=== PATIENT | male | born 1960 | race American Indian/Alaskan Native ===

== ENCOUNTER 2019-02-03 18:10 | Emergency (ER) | payer OTHER ==
[2019-02-03 18:15] VITALS: BMI 26.2
[2019-02-03 18:18] VITALS: RESP 18; TEMP 97.9; O2SAT 100
--- NOTE | 2019-02-03 18:48 | ED PDOC ---
Arrival/HPI - General Chief Complaint: Cough, Cold, Congestion Time Seen by Provider: 02/03/19 18:16 Historian: Patient - History of Present Illness Narrative History of Present Illness (Text): 02/03/19 18:41 58-year-old male presents today with a 4-day history of cough and nasal congestion. Patient states today he has been having continued productive dry cough now with developing pain only when coughing. No medications have been taken for pain at home. Patient states he has nasal congestion. He denies ear pain. He denies sore throat. No neck or back pain. No abdominal pain. No nausea or vomiting. No fevers or chills. No sick contacts. Patient states the cough is dry and when he starts coughing he is unable to stop. Patient denies shortness of breath. Past Medical History - Provider Review Nursing Documentation Reviewed: Yes - Travel History Have you recently traveled outside [place] w/in the past 3 mons?: No - Endocrine/Metabolic Hx Diabetes Mellitus Type 2: Yes - Psychiatric Hx Substance Use: No Family/Social History - Physician Review Nursing Documentation Reviewed: Yes Family/Social History: Unknown Family HX Smoking Status: Never Smoked Hx Alcohol Use: No Hx Substance Use: No Allergies/Home Meds Allergies/Adverse Reactions: Allergies No Known Allergies Allergy (Verified 02/03/19 18:15) Review of Systems - Review of Systems Constitutional: absent: Fatigue, Fevers ENT: Sinus Congestion. absent: Sore Throat Respiratory: Cough. absent: SOB, Sputum, Wheezing Cardiovascular: absent: Chest Pain, Palpitations Gastrointestinal: absent: Abdominal Pain, Constipation, Diarrhea, Nausea, Vomiting Genitourinary Male: absent: Dysuria, Frequency, Hematuria Musculoskeletal: absent: Arthralgias, Back Pain, Neck Pain Skin: absent: Rash, Pruritis Neurological: Headache. absent: Dizziness Psychiatric: absent: Anxiety, Depression Physical Exam Vital Signs Reviewed: Yes Vital Signs Temp Pulse Resp BP Pulse Ox 02/03/19 18:16 97.9 F 87 18 178/80 H 100 Temperature: Afebrile Blood Pressure: Hypertensive Pulse: Regular Respiratory Rate: Normal Appearance: Positive for: Well-Appearing, Non-Toxic, Comfortable Pain Distress: None Mental Status: Positive for: Alert and Oriented X 3 - Systems Exam Head: Present: Atraumatic Pupils: Present: PERRL Extroacular Muscles: Present: EOMI Conjunctiva: Present: Normal Ears: Present: Normal, NORMAL TM Mouth: Present: Moist Mucous Membranes, Normal Lips, Normal Tounge. No: Drooling, Trismus Pharnyx: Present: Normal. No: ERYTHEMA, EXUDATE, TONSILS ENLARGED, Peritonsilar Swelling, Uvular Deviation, Muffled/Hoarse Voice Nose (External): Present: Atraumatic Nose (Internal): Present: Normal Inspection Neck: Present: Normal Range of Motion, Trachea Midline Respiratory/Chest: Present: Clear to Auscultation, Good Air Exchange. No: Re spiratory Distress, Accessory Muscle Use Cardiovascular: Present: Regular Rate and Rhythm, Normal S1, S2. No: Murmurs Abdomen: No: Tenderness, Distention, Peritoneal Signs, Rebound, Guarding Neurological: Present: GCS=15, Speech Normal Skin: Present: Warm, Dry, Normal Color. No: Rashes Psychiatric: Present: Alert, Oriented x 3 Medical Decision Making ED Course and Treatment: 02/03/19 18:50 58-year-old male with cough x4 days with nasal congestion. Patient is nontoxic well-appearing no distress is stable vital signs Chest x-ray: Right lower lobe infiltrate CBC within normal limits CMP BUN 24 creatinine 2 BNP 7280 Patient states he cannot stay in the hospital as he is a 12-year-old son at home. He states he will return tomorrow morning after he arranges for someone to stay with his son. Patient was made aware of my concerns for renal insufficiency, CHF and pneumonia. Patient has been advised to not leave the emergency room but has decided to go AGAINST MEDICAL ADVICE. The patient possesses capacity to make decisions and has voiced understanding to all my warnings of potential worsening of the condition for which medical care was sought. I have discussed all known and potential risks and consequences to the patient leaving AGAINST MEDICAL ADVICE. Patient is leaving against medical advise. AMA form signed. witness by HEBER PRETTY All aspects of this case were discussed the attending of record. Impression: pneumonia, CHF, renal insufficiency Return if you wish to continue your care Zithromax one tablet once daily x4 days Follow-up with the motor and controls tester KAYLEN Followup with primary care physician KAYLEN Return if symptoms worsen persist or if new symptoms develop - RAD Interpretation Radiology Orders: 02/03/19 18:39 CHEST TWO VIEWS (PA/LAT) [RAD] Stat - Medication Orders Current Medication Orders: Discontinued Medications Acetaminophen (Tylenol 325mg Tab) 975 mg PO STAT STA Stop: 02/03/19 18:40 Disposition/Present on Arrival - Present on Arrival Any Indicators Present on Arrival: No History of DVT/PE: No History of Uncontrolled Diabetes: No Urinary Catheter: No History of Decub. Ulcer: No History Surgical Site Infection Following: None - Disposition Have Diagnosis and Disposition been Completed?: Yes Diagnosis: Pneumonia, CHF (congestive heart failure), Renal insufficiency Disposition: AGAINST MEDICAL ADVICE Disposition Time: 22:00 Patient Plan: Other (AMA) Patient Problems: Current Active Problems Problem Status Onset CHF (congestive heart failure) Acute Pneumonia Acute Renal insufficiency Acute Condition: GUARDED Discharge Instructions (ExitCare): Heart Failure (ED), Pneumonia, Adult (DC), Pneumonia in Adults, Acute Kidney Failure (DC) Additional Instructions: Return if you wish to continue your care Zithromax one tablet once daily x4 days Follow-up with the motor and controls tester KAYLEN Followup with primary care physician KAYLEN Return if symptoms worsen persist or if new symptoms develop Prescriptions: Azithromycin [Zithromax] 250 mg PO DAILY #4 tab Referrals: Washington Agrawal DO [Family Provider] - Follow up with primary Jose Clay MD [Staff Provider] - Follow up with primary Duane James MD [Staff Provider] - Follow up with primary Forms: Wish (Malay), WORK NOTE
[2019-02-03 21:34] LABS: BASO # 0.03 K/mm3 (0.0-2.0); BASO % 0.5 % (0.0-3.0); EOS # 0.1 (0.0-0.7); EOS % 2.1 % (1.5-5.0); HEMOGLOBIN 10.6 g/dL (14.0-18.0); LYMPH # 1.2 (1.2-3.4); MEAN CELL VOLUME 77.4 fl (80.0-105.0); MEAN CORPUSCULAR HEMOGLOBIN 24.4 pg (25.0-35.0); MEAN CORPUSCULAR HGB CONC 31.5 g/dl (31.0-37.0); MEAN PLATELET VOLUME 10.2 fl (7.0-11.0); MONO # 0.3 (0.1-0.6); MONO % 4.8 % (1.0-6.0); RBC 4.34 10^6/uL (3.5-6.1); RED CELL DISTRIBUTION WIDTH 14.6 % (11.5-14.5); WHITE BLOOD COUNT 6.2 10^3/uL (4.5-11.0)
[2019-02-03 21:46] LABS: ALB/GLOB RATIO 0.9 (1.1-1.8); ALBUMIN 3.3 g/dL (3.0-4.8); CALCIUM 8.9 mg/dL (8.4-10.5)
[2019-02-03 22:37] VITALS: BP 154/68; PULSE 75
--- NOTE | 2019-02-04 08:38 | RAD ---
HISTORY: cough x 4 days COMPARISON: None available. TECHNIQUE: Chest PA and lateral, 2 views FINDINGS: Examination limited by habitus and patient obliquity. LUNGS: Bilateral hilar prominence. No focal consolidation. Please note that chest x-ray has limited sensitivity for the detection of pulmonary masses. PLEURA: No significant pleural effusion identified. No definite pneumothorax . CARDIOVASCULAR: Cardiomegaly. OSSEOUS STRUCTURES: No acute osseous abnormality identified. VISUALIZED UPPER ABDOMEN: Unremarkable. OTHER FINDINGS: None. IMPRESSION: Cardiomegaly. Bilateral hilar prominence.
== END 2019-02-03 22:30 | disposition left against medical advice (07) ==
LOC: MERGE 18:10 → ED 18:10
DX: J18.9 Pneumonia, unspecified organism (principal); I50.9 Heart failure, unspecified; N28.9 Disorder of kidney and ureter, unspecified; E11.9 Type 2 diabetes mellitus without complications

== ENCOUNTER 2019-02-04 10:02 | Inpatient (IN) | payer OTHER ==
[2019-02-04 10:21] VITALS: BMI 25.7
[2019-02-04] MEDS ORDERED: guaiFENesin 200 mg/10 ml Syrup UD PO ONE (10:27)
[2019-02-04] MEDS ORDERED: Albuterol-Ipratrop 3 mg / 0.5 (3 ml) UD IH STA (10:27)
--- NOTE | 2019-02-04 10:37 | ED PDOC ---
Arrival/HPI - General Chief Complaint: Cough, Cold, Congestion Time Seen by Provider: 02/04/19 10:10 Historian: Patient - History of Present Illness Narrative History of Present Illness (Text): 02/04/19 11:06 58-year-old male returns to the ER for cough and to be admitted. Patient states that he was seen in the ER yesterday for a 4-day history of productive cough and nasal congestion. Patient states he was told that he had pneumonia and CHF, was advised to stay overnight in the hospital however he left AGAINST MEDICAL ADVICE. Patient states that he is willing to be admitted now. Patient denies any ear pain, sore throat, neck or back pain, abdominal pain, nausea or vomiting, fevers or chills, sick contacts, shortness of breath, chest pain or back pain. PMD [place] Past Medical History - Provider Review Primary Care Provider: Washington Agrawal - Infectious Disease Hx of Infectious Diseases: None - Pulmonary Hx Pneumonia: Yes - Endocrine/Metabolic Hx Diabetes Mellitus Type 2: Yes - Musculoskeletal/Rheumatological Hx Falls: No - Psychiatric Hx Substance Use: No Family/Social History Family/Social History: No Known Family HX Smoking Status: Never Smoked Hx Alcohol Use: No Hx Substance Use: No Allergies/Home Meds Allergies/Adverse Reactions: Allergies No Known Allergies Allergy (Verified 02/04/19 08:38) Review of Systems - Review of Systems Constitutional: absent: Fatigue, Fevers ENT: absent: Sore Throat, Rhinorrhea, Sinus Congestion Respiratory: Cough. absent: SOB, Sputum Cardiovascular: absent: Chest Pain, Palpitations Gastrointestinal: absent: Abdominal Pain, Nausea, Vomiting Musculoskeletal: absent: Arthralgias, Back Pain, Neck Pain Skin: absent: Rash, Skin Lesions Neurological: absent: Headache, Dizziness Physical Exam Temperature: Afebrile Blood Pressure: Hypertensive Pulse: Regular Respiratory Rate: Normal Appearance: Positive for: Well-Appearing, Non-Toxic, Comfortable Pain Distress: None Mental Status: Positive for: Alert and Oriented X 3 - Systems Exam Head: Present: Atraumatic, Normocephalic Pupils: Present: PERRL Extroacular Muscles: Present: EOMI Conjunctiva: Present: Normal Mouth: Present: Moist Mucous Membranes Neck: Present: Normal Range of Motion. No: Meningeal Signs, Lymphadenopathy Respiratory/Chest: Present: Good Air Exchange, Rales (+fine rales at the bases). No: Respiratory Distress, Accessory Muscle Use, Wheezes, Rhonchi Cardiovascular: Present: Regular Rate and Rhythm, Normal S1, S2. No: Murmurs Abdomen: No: Tenderness, Distention, Peritoneal Signs Back: Present: Normal Inspection Upper Extremity: Present: Normal Inspection. No: Cyanosis, Edema Lower Extremity: Present: Normal Inspection, Edema (2+ pittting edema) Neurological: Present: GCS=15, CN II-XII Intact, Speech Normal, Motor Func Grossly Intact, Normal Sensory Function, Other Skin: Present: Warm, Dry, Normal Color. No: Rashes Psychiatric: Present: Alert, Oriented x 3, Normal Insight, Normal Concentration Medical Decision Making ED Course and Treatment: 02/04/19 11:02 Previous medical records reviewed, patient was seen yesterday 02/03/14 for cough, he was diagnosed with pneumonia, CHF and renal insufficiency. Labs performed yesterday showed : cbc hgb 10.3 cmp bun 24, creat 2.0, bnp 7280 CXR 02/03/19 : Cardiomegaly. Bilateral hilar prominence. Plan : - IV - Labs - EKG - CXR - Guifenesin PO - Duoneb x1 - Zithromax PO - Lasix IV EKG: NSR at 93 bpm, (+) T wave inversions noted to V5-V6, no prior EKGs available for comparison, as read by PA. Case d/w Dr. Massey, will admit the patient to remote tele with consults to Dr. Bustos for Renal and Dr. Larsen for cardio. Admit order, bridge orders and consults placed. 02/04/19 11:20 Labs from today : cbc hgb 10.3 cmp bun 24, creat 2.1, trop 0.02, bnp 6620 - Medication Orders Current Medication Orders: Discontinued Medications Albuterol/Ipratropium (Duoneb 3 Mg/0.5 Mg (3 Ml) Ud) 3 ml IH STAT STA Stop: 02/04/19 10:28 Furosemide (Lasix) 20 mg IVP STAT STA Stop: 02/04/19 10:34 Guaifenesin (Robitussin) 200 mg PO ONCE ONE Stop: 02/04/19 10:28 - PA / ELECTRONIC MAINTENANCE SUPERVISOR / Resident Statement MD/DO has reviewed & agrees with the documentation as recorded. Disposition/Present on Arrival - Present on Arrival Any Indicators Present on Arrival: Yes History of DVT/PE: No History of Uncontrolled Diabetes: Yes Urinary Catheter: No History of Decub. Ulcer: No History Surgical Site Infection Following: None - Disposition Have Diagnosis and Disposition been Completed?: Yes Diagnosis: CHF (congestive heart failure), Renal insufficiency, Bronchitis Disposition: HOSPITALIZED Disposition Time: 10:30 Patient Plan: Admission (to remote main campus medical center, as per Dr. Massey) Patient Problems: Current Active Problems Problem Status Onset Bronchitis Acute CHF (congestive heart failure) Acute Renal insufficiency Acute Condition: STABLE
[2019-02-04 10:49] LABS: BASO # 0.03 K/mm3 (0.0-2.0); BASO % 0.6 % (0.0-3.0); EOS # 0.1 (0.0-0.7); EOS % 2.8 % (1.5-5.0); HEMOGLOBIN 10.3 g/dL (14.0-18.0); LYMPH # 0.9 (1.2-3.4); LYMPH % 18.3 % (22.0-35.0); MEAN CORPUSCULAR HEMOGLOBIN 24.5 pg (25.0-35.0); MEAN CORPUSCULAR HGB CONC 31.8 g/dl (31.0-37.0); MEAN PLATELET VOLUME 9.8 fl (7.0-11.0); MONO # 0.2 (0.1-0.6); MONO % 4.5 % (1.0-6.0); RBC 4.21 10^6/uL (3.5-6.1); RED CELL DISTRIBUTION WIDTH 14.6 % (11.5-14.5); WHITE BLOOD COUNT 4.9 10^3/uL (4.5-11.0)
[2019-02-04 11:00] LABS: INR 1.19; PROTHROMBIN TIME 13.4 SECONDS (9.4-12.5)
[2019-02-04 11:07] LABS: ALB/GLOB RATIO 0.8 (1.1-1.8); ALBUMIN 3.1 g/dL (3.0-4.8); CALCIUM 8.6 mg/dL (8.4-10.5)
[2019-02-04 11:11] LABS: TROPONIN I 0.02 ng/mL
[2019-02-04 12:08] LABS: CK-MB 3.2 ng/mL (0.0-3.6)
[2019-02-04] MEDS ORDERED: Pneumococcal 23-Valent Vaccine IM ONE (13:23)
--- NOTE | 2019-02-04 15:01 | CARD ---
APPROVED REPORT Date of service: 02/04/2019 EKG Measurement Heart [id number] <Conclusion> Normal sinus rhythm Biatrial enlargement Voltage criteria for LVH T wave abnormality, consider lateral ischemia Prolonged QT Abnormal ECG
[2019-02-04 16:17] LABS: TOTAL IRON BINDING CAPACITY 234 ug/dL (261-462)
[2019-02-04 16:24] LABS: % IRON SATURATION 21 % (20-55); IRON 49 ug/dL (45-180)
--- NOTE | 2019-02-04 16:24 | US ---
Date of service: 02/04/2019 PROCEDURE: Ultrasound of the Kidneys HISTORY: [facility] COMPARISON: None available. TECHNIQUE: Sonogram of the kidneys. FINDINGS: RIGHT KIDNEY: Measures: 12.1 x 5.7 x 6.4 cm. No obstructing calculus or hydronephrosis identified. 1.5 x 1.3 x 1.3 cm midpole cyst. LEFT KIDNEY: Measures: 13.3 x 6.3 x 6.8 cm. No obstructing calculus, hydronephrosis, or renal cyst identified. OTHER FINDINGS: None. IMPRESSION: 1.5 x 1.3 x 1.3 cm right midpole renal cyst.
[2019-02-04] MEDS: cefTRIAXone 1 gm 1 GM/100 ML BAG IVPB SCH (17:12)
--- NOTE | 2019-02-04 17:38 | CON ---
DATE OF CONSULTATION: 02/04/2019 REASON FOR CONSULTATION: Acute kidney injury, shortness of breath, NIDDM, hypertension. HISTORY OF PRESENT ILLNESS: A 58-year-old male, very poor historian, he reports that he has a history of diabetes for at least 10 years, also he has a history of hypertension, but he does not take any medications. He reports he was sent to the cardiovascular specialist by his primary care doctor, but he never followed up. He came to the emergency room because he was coughing, and he developed a severe headache and severe retrosternal pain associated with the cough. He denies any fever. He denies any chills. He denies any phlegm. In the emergency room, he was found to have severe hypertension. His pressure was 170/107 and heart rate was found to be 95. He was afebrile. He was tachypneic with a respiratory rate of 22. His initial blood work showed a hemoglobin of 10.3, and his BUN was 24 and his creatinine was 2.1. Consultation was requested for hypertensive emergency, acute kidney injury. PAST MEDICAL AND SURGICAL HISTORY: NIDDM, hypertension, ?CHF, ?chronic kidney disease. The patient actually was in the emergency room yesterday complaining of productive cough. The patient was told he had pneumonia and CHF, but the patient left AMA yesterday. FAMILY HISTORY: Noncontributory. SOCIAL HISTORY: No smoking, no alcohol use, no IV drug abuse. ALLERGIES: NO KNOWN DRUG ALLERGIES. MEDICATIONS: He reports that he takes insulin and he takes a combination medication for his sugar, which has metformin, but he does not know the name. Also, he reports that he does not take any of his antihypertensives that were prescribed. REVIEW OF SYSTEMS: Cough, shortness of breath, headache, retrosternal pain. PHYSICAL EXAMINATION: GENERAL: Middle-aged male, lying in bed. VITAL SIGNS: Blood pressure 157/96, heart rate 96, respiratory rate 18, temperature 98.6. HEENT: Normocephalic, atraumatic, positive pallor. NECK: Supple, no JVD. LUNGS: Bilateral equal entry, bilateral rhonchi, no rales appreciated. CARDIAC: S1, S2, no murmur, no rub. ABDOMEN: Soft, nondistended, nontender, bowel sounds present. EXTREMITIES: No lower extremity edema. LABORATORY DATA: WBC 4.9, hemoglobin 10.3, hematocrit 32, platelets 202, MCV 77. Sodium 140, potassium 4.4, chloride 109, CO2 of 28, BUN 24, creatinine 2.1, glucose 111, calcium 8.6, magnesium 2.3, AST 71, ALT 37, LDH 1047, BNP 6620, albumin 3.1. Chest x-ray within normal limits, some hilar prominence. CURRENT MEDICATIONS: Insulin, Lasix 20 mg IV push given in the emergency room, IV daily ordered, amlodipine 5, ceftriaxone 1 g, Zithromax. ASSESSMENT: A 58-year-old male, poor historian, noncompliant with medical treatment, with a history of [id number] diabetes mellitus for 10+ years, hypertension for a long time, but not on medication, ? CHF, ?underlying chronic kidney disease, is presenting with cough, shortness of breath, retrosternal pain likely secondary to cough. Does not appear to have any pneumonia at this time. Likely pain is related to hacking cough which might be secondary to bronchitis. Does not appear to be in failure. His lungs are clear. He has no edema. His chest x-ray looks good. At this time, unclear what his baseline creatinine is. I have tried to call Dr. Agrawal's office, but was unable to get any information. Suspect he does have underlying chronic kidney disease. 1. Acute kidney injury superimposed on chronic kidney disease stage II/III?. 2. Longstanding diabetes, ?controlled. 3. Severe hypertension, hypertensive emergency. 4. Diastolic dysfunction. 5. Underlying diabetic nephropathy?, anemia, chronic kidney disease, ?microcytic anemia, need to consider iron-deficiency anemia also in the differential diagnosis. PLAN: 1. Urinalysis. 2. Check phosphorus. 3. Check iron stores. 4. Renal ultrasound. 5. Add hydralazine 10 t.i.d. 6. We will hold off on ARB for the time being until we can figure out outpatient lab work. The patient is counseled regarding importance of blood pressure control and slowing down the progression of kidney disease. Thank you for the courtesy of this consultation. We will follow this patient closely with you. Yolanda Bustos MD
[2019-02-04] MEDS: Insulin Reg-MEDIUM-Coverage SC SCH ×2 (17:50→22:26)
[2019-02-04 20:42] LABS: FERRITIN 59.5 ng/mL
[2019-02-04] MEDS ORDERED: guaiFENesin 200 mg/10 ml Syrup UD PO STA (22:14)
--- NOTE | 2019-02-04 22:30 | HP ---
DATE OF EXAM: 02/04/2019 HISTORY OF PRESENT ILLNESS: I was called to the emergency room to see Juan and admit him to the hospital. This a second trip to the emergency room in a week. He comes in with complaints of productive cough, nasal congestion, and he had pneumonia and CHF. He was advised to stay overnight and he refused and left against medical advice, now he is back, a little bit worse with the same situation, he agrees to stay. He is a 58-year-old male with a CHF and COPD issue. He is in the gursavage, little uncomfortable. He has got history of pneumonia, CHF, and diabetes. MEDICATIONS: He has no medicine with him right now. ALLERGIES: HE HAS NO KNOWN DRUG ALLERGIES. FAMILY HISTORY: There is no family history of anything. SOCIAL HISTORY: Nonsmoker. No drinking. No drugs. REVIEW OF SYSTEMS: He is not fatigue. No fevers. He has no sore throat or rhinorrhea. No sinus congestion. He has had a cough productive and occasional shortness of breath if he does anything, feels swollen. No chest pain or palpitations. No abdominal pain, nausea, vomiting, constipation, or diarrhea. No arthralgias. No back pain or neck pain. No skin lesions or rashes that he knows of. No headache or dizziness. PHYSICAL EXAMINATION: VITAL SIGNS: He has a 98.6 temperature, 96 pulse, 157/96 blood pressure, I put him on amlodipine and when he came in, his blood pressure was 169/108 and 160/102, 18 respiratory rate, and 95% O2 sat on room air. HEAD, EYES, EARS, NOSE AND THROAT: Normocephalic and atraumatic. Extraocular muscles are intact. Pupils equal and reactive to light and accommodation. Throat is moist. NECK: Supple. No JVD. Thyroid midline. No palpable cervical lymphadenopathy. Good range of motion of the neck. No meningeal signs. HEART: Regular rate. Normal S1 and S2. LUNGS: Decreased breath sounds, fine rales at the bases. No wheezes. Cough congestion. ABDOMEN: Soft and nontender. Positive bowel sounds. No guarding. No rebound. No CVA tenderness. EXTREMITIES: Have +2 pitting edema bilateral lower extremities. NEUROLOGIC: GCS is 50. Cranial nerves II through XII grossly intact. Speech is normal. Alert and oriented x3. He is comfortable at rest, but he is short of breath and coughing. SKIN: Warm and dry. No apparent rashes or ulcers. LABORATORY DATA: He had multiple tests done. He has a 140 sodium, potassium 4.4, BUN 24, creatinine 2.1, little high, GFR 32, sugar is 111, calcium 8.6, magnesium 2.3, and total bili is 0.8. AST is 71, ALT is 37, and alk phos 120. Lactate dehydrogenase is 1047. Total creatine kinase is 3920. Troponin I is 0.02. BNP is high at 6620. Total protein is 6.7. INR is 1.19. White count 4.9, hemoglobin 10.3, hematocrit 32.4 with 202 platelets. No chest x-ray was done, I will order chest x-ray. ASSESSMENT AND PLAN: He will be on oxygen. He will have consults with Pulmonary, Renal, and Cardio. He will have Rocephin, Zithromax, Lasix IV, and amlodipine. We are checking his fingersticks. He was not taking any medications at home. He is here for a congestive heart failure, pneumonia, renal insufficiency, hypertension, diabetes picture, and hopefully he will get better. Gene Massey DO MTDD
[2019-02-05 01:21] LABS: PH,URINE 6.5 (4.7-8.0); URINE BILIRUBIN NEGATIVE (NEGATIVE); URINE BLOOD LARGE (NEGATIVE); URINE GLUCOSE (UA) NEGATIVE (NEGATIVE); URINE LEUKOCYTE ESTERASE NEGATIVE Leu/uL (NEGATIVE); URINE PROTEIN >=300 mg/dL (<30 mg/dL); URINE UROBILINOGEN 0.2 E.U./dL (<1 E.U./dL)
[2019-02-05 01:44] LABS: URINE APPEARANCE CLEAR (CLEAR); URINE COLOR YELLOW (YELLOW)
[2019-02-05 02:06] LABS: URINE EPITHELIAL CELLS 0 - 2 /hpf (0-5); URINE RBC 20 - 25 /hpf (0-2)
[2019-02-05 02:07] LABS: URINE BACTERIA SMALL /hpf
[2019-02-05 07:25] LABS: ALB/GLOB RATIO 0.8 (1.1-1.8); ALBUMIN 2.9 g/dL (3.0-4.8); CALCIUM 8.8 mg/dL (8.4-10.5)
[2019-02-05 07:37] LABS: HEMOGLOBIN 10.2 g/dL (14.0-18.0); MEAN CELL VOLUME 76.2 fl (80.0-105.0); MEAN CORPUSCULAR HEMOGLOBIN 24.2 pg (25.0-35.0); MEAN CORPUSCULAR HGB CONC 31.8 g/dl (31.0-37.0); MEAN PLATELET VOLUME 10.3 fl (7.0-11.0); RBC 4.21 10^6/uL (3.5-6.1); RED CELL DISTRIBUTION WIDTH 14.5 % (11.5-14.5); WHITE BLOOD COUNT 6.8 10^3/uL (4.5-11.0)
[2019-02-05] MEDS: Insulin Reg-MEDIUM-Coverage SC SCH ×3 (08:30→17:46)
[2019-02-05] MEDS: cefTRIAXone 1 gm 1 GM/100 ML BAG IVPB SCH (09:28)
[2019-02-05] MEDS: Azithromycin 500MG/NS 250ml 500 MG/250 ML BAG IVPB SCH (09:42)
--- NOTE | 2019-02-05 11:53 | RAD ---
Date of service: 02/05/2019 HISTORY: CHF COMPARISON: 02/03/2019. TECHNIQUE: Chest PA and lateral FINDINGS: LINES AND TUBES: None. LUNG AND PLEURA: The lungs are well inflated and clear. No pleural effusion or pneumothorax. HEART AND MEDIASTINUM: There is moderate cardiomegaly. No aortic atherosclerotic calcifications present. The hilar and mediastinal contours are within normal limits. SKELETAL STRUCTURES: The bony structures are within normal limits for the patient's age. VISUALIZED UPPER ABDOMEN: Normal. OTHER FINDINGS: None. IMPRESSION: No active pulmonary disease. Moderate cardiomegaly.
--- NOTE | 2019-02-05 12:09 | PN ---
DATE: 02/05/2019 SUBJECTIVE: He is actually comfortable in bed right now. He comes in with a CHF, acute kidney injury, renal insufficiency pneumonia, hypertension, diabetes and a non-obstructing kidney stone. He is being seen by Cardio, Renal, Pulmonary. OBJECTIVE: VITAL SIGNS: He has a 98.4 temperature, 90 pulse, 166/93 blood pressure, still elevated. I will increase his Norvasc to 10 mg, 20 respiratory rate and 95% O2 sat on room air. HEENT: Head is atraumatic, normocephalic. He is comfortable in bed. HEART: Regular rate. LUNGS: Decreased breath sounds, clear. ABDOMEN: Soft. EXTREMITIES: No edema. LABORATORY DATA: He has a 141 sodium, potassium 3.7, BUN is 23, creatinine 2.3, GFR is 29, calcium is 8.8, total bili is 0.7. AST is 61, ALT is 33, alk phos 114, total protein 6.3. White count 6.8, hemoglobin 10.2, hematocrit 32.1, platelets of 222. Multiple consults being seen. We will continue with aggressive treatment and care. I am going to repeat a chest x-ray, it might be more bronchitis than pneumonia. He is on Rocephin and Zithromax. I will continue to diurese him and follow his kidney functions. Gene Massey DO MTDD
--- NOTE | 2019-02-05 14:47 | CON ---
DATE OF CONSULTATION: 02/05/2019 HISTORY OF PRESENT ILLNESS: The patient is a 58-year-old gentleman. He came to the emergency room twice with complaints of cough. He had nasal congestion at the same time. He denies real shortness of breath. He was told that he had pneumonia and congestive heart failure. He was admitted to the hospital after leaving for several hours to take care of some business. He has diabetes mellitus. His home medication is unknown. He has no known allergies. PAST MEDICAL HISTORY: Diabetes mellitus FAMILY HISTORY: Coronary artery disease, otherwise negative. SOCIAL HISTORY: The patient is a nonsmoker. No occupational or travel history. REVIEW OF SYSTEMS: No fever or chills. The patient denies significant shortness of breath. He has an occasional cough that is nonproductive. He has no chest pain or palpitations. He denies fever or chills. All other systems negative. PHYSICAL EXAMINATION: GENERAL: The patient is comfortable. VITAL SIGNS: Afebrile, temperature 98.6, pulse 80, respiratory rate 16, blood pressure 140/84. HEENT: Normocephalic, atraumatic. EOMs full. Conjunctivae pink. NECK: Supple. No JVD, no bruit. No lymphadenopathy. HEART: Regular rhythm, S1, S2 without murmur, gallop or rub. CHEST: Good breath sounds. No rales or rhonchi appreciated. Wheeze is absent. ABDOMEN: Soft. Bowel sounds normoactive without mass, guarding or rebound. EXTREMITIES: Reveal trace edema. NEUROLOGIC: Awake, alert, oriented, no focal findings noted. SKIN: Warm and dry. No rash or excoriation. LYMPHADENOPATHY: No lymph nodes palpated in the cervical, inguinal or axillary areas. LABORATORY DATA: White count 4900, hemoglobin 10.3, hematocrit 32.4, platelet count 202,000. PT 13, APTT 41. BUN 24, creatinine 2.1. AST 71, ALT 37. BNP 6620. Urine: Proteinuria noted. Chest x-ray shows mild cardiomegaly, some scarring, no acute infiltrate. ASSESSMENT: Shortness of breath, cough. The patient was told of congestive heart failure. BNP is mildly elevated. No rales are appreciated at this time. Trace edema is still noted. Cardiology evaluation is pending. The patient has been started on vigorous antibiotic therapy. I do not see any significant pneumonitis, but a followup chest x-ray is in order. PLAN: Repeat chest x-ray to look for further congestive changes and/or pneumonia. I doubt significant pneumonia will be noted. History of cardiomegaly. Close followup. We will discuss at length with Dr. Massey, the primary medical doctor. Thank you for the opportunity to participate in the care of the patient. Cipriano Francois MD MTDD
[2019-02-05 23:23] LABS: CREATININE,RANDOM URINE 150 mg/dL
--- NOTE | 2019-02-05 23:24 | CON ---
DATE: 02/05/2019 CARDIOLOGY CONSULTATION REASON FOR CONSULTATION: Chest pain. HISTORY OF PRESENT ILLNESS: The patient is a 58-year-old male, originally from [place] in [place], presented because of productive cough and chest pain associated with his cough. The patient denies any fever or chills. The patient stated that he underwent a stress test as an outpatient in a facility in [facility]. He does not know the results, and he was told that the results will be sent to his primary physician. The patient is unaware of any history of a heart attack in the past. There is questionable history of congestive heart failure. PAST MEDICAL HISTORY: The patient denies any history of stroke or heart attack. SOCIAL HISTORY: The patient is a nonsmoker and nondrinker. He works as an reconciliation accountant. MEDICATIONS: Hydralazine 10 mg t.i.d., Lasix 40 mg intravenously daily, Norvasc 10 mg once a day, Rocephin 1 g intravenously daily, and Zithromax 500 mg intravenously daily. PHYSICAL EXAMINATION: GENERAL: The patient is a middle-aged male, who does not appear to be in any distress. VITAL SIGNS: Blood pressure 156/96, heart rate 81, temperature 98.1, and respirations 20. HEENT: Normocephalic. CHEST: Right basal coarse crepitations and bilateral rhonchi. HEART: S1 and S2 regular and distant. ABDOMEN: Soft. EXTREMITIES: No edema. LABORATORY DATA: Today's hemoglobin and hematocrit 10.2 and 32.1. White count and platelet count are within normal limits. Today's SMA-7; sodium 141, potassium 3.7, chloride 108, CO2 of 29, glucose 55, BUN 23, and creatinine 2.3. ProBNP 6620. Troponin 0.02. X-ray was not accessible on medical database; however, their official report, no active pulmonary disease, moderate cardiomegaly. EKG reveals sinus rhythm at the rate of 93, biatrial enlargement, T-wave abnormality, consider lateral ischemia and prolonged QT interval. Renal ultrasound; 1.5 x 1.3 x 1.3 cm right midpole renal cyst. ASSESSMENT: 1. Congestive heart failure. 2. Uncontrolled hypertension. 3. Rule out underlying coronary artery disease. 4. Chronic insufficiency. 5. Rule out underlying pneumonia. RECOMMENDATIONS: IV Lasix 40 mg daily, Norvasc 10 mg once a day, continue IV Rocephin and IV Zithromax. RAMIREZ inhibitors and Aldactone may not be fully justified at this time. Start Coreg at 3.125 mg twice a day. Obtain an echocardiac study and increase hydralazine to 10 mg t.i.d. Kenn Howe MD
[2019-02-05 23:54] LABS: TOTAL PROTEIN,RANDOM URINE 948 mg/L
[2019-02-06] MEDS ORDERED: guaiFENesin DM 200 mg-20 mg/10 ml UD PO ONE (00:21)
[2019-02-06] MEDS: Insulin Reg-MEDIUM-Coverage SC SCH ×5 (00:30→22:08)
--- NOTE | 2019-02-06 05:35 | CP.PCM.PN ---
Subjective - Date & Time of Evaluation Date of Evaluation: 02/06/19 Time of Evaluation: 05:32 - Subjective Subjective: S:It was requested to co-sign order for Robitussin. Patient had it and is comfortable now as per nurse. Has no other complaints now. He is asleep now. O:VSS. Not in distress. LUNGS:Normal breathing pattern. A:Cough. P:Robitussin as orderd. Objective - Vital Signs/Intake and Output Vital Signs (last 24 hours): Temp Pulse Resp BP Pulse Ox 98.9 F 88 26 H 159/88 H 97 02/06/19 00:01 02/06/19 02:00 02/06/19 00:01 02/06/19 00:01 02/06/19 00:01 Intake and Output: 02/05/19 02/06/19 18:59 06:59 Intake Total 840 Output Total 1000 Balance 840 -1000 - Medications Medications: Current Medications Acetaminophen (Tylenol 325mg Tab) 650 mg PO Q4H PRN PRN Reason: Fever >100.4 F Last Admin: 02/04/19 17:51 Dose: 650 mg Amlodipine Besylate (Norvasc) 10 mg PO DAILY [facility] Furosemide (Lasix) 40 mg IVP DAILY [facility] Last Admin: 02/05/19 09:29 Dose: 40 mg Heparin Sodium (Porcine) (Heparin) 5,000 units SC Q12 [facility]; Protocol Last Admin: 02/05/19 21:07 Dose: 5,000 units Hydralazine HCl (Apresoline) 25 mg PO Q8 [facility] Last Admin: 02/05/19 21:06 Dose: 25 mg Ceftriaxone Sodium (Rocephin 1 Gram Ivpb) 1 gm in 100 mls @ 100 mls/hr IVPB DAILY [facility]; Protocol Stop: 02/08/19 10:59 Last Admin: 02/05/19 09:28 Dose: 100 mls/hr Azithromycin (Zithromax 500mg In Ns) 500 mg in 250 mls @ 167 mls/hr IVPB DAILY [facility]; Protocol Last Admin: 02/05/19 09:42 Dose: 167 mls/hr Insulin Human Regular (Humulin R Med) 0 units SC ACHS [facility]; Protocol Last Admin: 02/06/19 00:30 Dose: Not Given - Labs Labs: 02/05/19 06:30 02/05/19 06:30 PT 13.4 SECONDS (9.4-12.5) H 02/04/19 10:40 INR 1.19 02/04/19 10:40 APTT 41.0 Seconds (26.9-38.3) H 02/04/19 10:40
[2019-02-06 07:50] LABS: HEMOGLOBIN 10.2 g/dL (14.0-18.0); MEAN CELL VOLUME 77.1 fl (80.0-105.0); MEAN CORPUSCULAR HEMOGLOBIN 23.8 pg (25.0-35.0); MEAN CORPUSCULAR HGB CONC 30.9 g/dl (31.0-37.0); MEAN PLATELET VOLUME 10.4 fl (7.0-11.0); RBC 4.28 10^6/uL (3.5-6.1); RED CELL DISTRIBUTION WIDTH 14.5 % (11.5-14.5); WHITE BLOOD COUNT 4.1 10^3/uL (4.5-11.0)
[2019-02-06 08:24] LABS: ALB/GLOB RATIO 0.8 (1.1-1.8); CALCIUM 8.6 mg/dL (8.4-10.5)
[2019-02-06] MEDS: guaiFENesin 200 mg/10 ml Syrup UD PO PRN ×2 (10:22→22:10)
[2019-02-06] MEDS: cefTRIAXone 1 gm 1 GM/100 ML BAG IVPB SCH (10:22)
[2019-02-06] MEDS: Azithromycin 500MG/NS 250ml 500 MG/250 ML BAG IVPB SCH (10:23)
[2019-02-06 13:21] VITALS: RESP 20
--- NOTE | 2019-02-06 18:47 | PN ---
DATE: 02/06/2019 SUBJECTIVE: This is actually the first day I am seeing him where he is actually feeling a little bit better. He is breathing a little bit better. No chest pain and no shortness of breath. He is eating better. This is a good day for him, if he continues until tomorrow probably I am going to discharge him tomorrow. PHYSICAL EXAMINATION: VITAL SIGNS: He has 98.9 temperature and 88 pulse. His blood pressure has been franklyn high at 163/98 and 151/49, it has been up and down, better now. Respiratory rate is up to 26 and 97% O2 sat. HEENT: His head is atraumatic, normocephalic. HEART: Regular rate. LUNGS: Decreased breath sounds, but clear to auscultation. No wheezing, no rhonchi, no rales. ABDOMEN: Soft. EXTREMITIES: No edema. MEDICATIONS: He is on Apresoline, heparin, Norvasc, Robitussin, Rocephin IV, Tylenol, azithromycin. LABORATORY DATA: He has 4.1 white count, 10.2 hemoglobin, 33 hematocrit with 206 platelets. Sodium 142, potassium 3.8, BUN 31 and creatinine 2.6, that has been going up a little bit. GFR 25, 125 sugar, 8.6 calcium, total bili is 0.5. AST is 61, ALT is 36, alk phos 121, total protein is 6.5. ASSESSMENT AND PLAN: I consulted Renal for their opinion of the elevation in kidney functions. I am concerned about that. Cardiology for congestive heart failure. He is supposed to be on intravenous Lasix 40 mg daily and I am not sure why I do not see it on his MAR. We will continue with aggressive treatment and care on Mr. Juan Tran. Gene Massey DO
--- NOTE | 2019-02-06 19:08 | PN ---
DATE: 02/06/2019 SUBJECTIVE: The patient is still experiencing productive cough and shortness of breath, slightly improved. No residual chest pain. OBJECTIVE: VITAL SIGNS: Blood pressure 141/89, heart rate 84, temperature 98.3, and respirations 20. HEENT: Normocephalic. CHEST: Bibasilar rhonchi. HEART: S1, S2, regular. ABDOMEN: Soft. EXTREMITIES: No edema. LABORATORY DATA: Today's hemoglobin and hematocrit 10.1 and 33.0, white count 4.1, and platelet count 206,000. Today's SMA-7, sodium 142, potassium 3.8, chloride 106, CO2 of 30, glucose 125, BUN 31, and creatinine 2.6. Chest x-ray revealed cardiomegaly with prominent central pulmonary vasculature and mild CHF. ASSESSMENT: 1. Congestive heart failure. 2. Uncontrolled hypertension. 3. Rule out underlying ischemic cardiomyopathy. 4. Worsening renal insufficiency. RECOMMENDATIONS: Continue hydralazine 25 mg every 8 hours, subcutaneous heparin 5000 international units every 12 hours, Norvasc 10 mg daily, IV Rocephin and IV Zithromax. Start Coreg 3.125 mg twice a day. Increase hydralazine to 25 mg every 8 hours. I will follow echocardiographic study scheduled for tomorrow. Kenn Howe MD
--- NOTE | 2019-02-06 21:40 | PN ---
DATE: 02/06/2019 SUBJECTIVE: The patient is seen lying in bed. He is awake, he is alert and he is comfortable. He is still coughing, but he denies any retrosternal chest pain now. He denies any shortness of breath. He reports that he is urinating a lot. PHYSICAL EXAMINATION GENERAL: Middle-aged male lying in bed. VITAL SIGNS: Blood pressure 141/89, heart rate 84, respiratory rate 20 and temperature 98.3. HEENT: Normocephalic, atraumatic and positive pallor. NECK: Supple, no JVD. LUNGS: Bilateral equal entry, bilateral equal expansion, no rales. CARDIAC: S1 and S2, regular rate and rhythm, no murmur, no rub. ABDOMEN: Distended, soft, nontender and bowel sounds present. EXTREMITIES: No lower extremity edema. LABORATORY DATA: WBC 4, hemoglobin 10, hematocrit 33 and platelets 206. Sodium 142, potassium 3.8, chloride 106, CO2 of 30, BUN 31, creatinine 2.6, glucose 125, calcium 8.6 and albumin 3.0. Urinalysis; yellow clear, pH 6.5, specific gravity 1020, protein greater than 300, blood large, RBCs 20 to 25 and WBCs 25. Urine creatinine 150 and urine protein 948. Protein creatinine ration about 6 g. Chest x-ray; no acute disease. CURRENT MEDICATIONS: Apresoline 50 every 8 hours, Coreg 3.125 b.i.d., insulin, Lasix 40 IV daily, amlodipine 10, Rocephin 1 g daily, Tylenol and Zithromax. ASSESSMENT: 1. Acute kidney injury superimposed on chronic kidney disease stage III? Baseline creatinine not available at this time. 2. Nephrotic range proteinuria. 3. Noninsulin-dependent diabetes mellitus, well controlled at present, A1c 6.6. 4. Status post hypertensive emergency. 5. Acute bronchitis? Cough, chest pain, shortness of breath, no evidence of congestive heart failure. PLAN; 1. Discontinue Lasix 40 mg. 2. Agree with increasing hydralazine to 50 every 8 hours. 3. Continue empiric antibiotics. 4. Check ESR, JOÃO, ANCA, serum immunoglobulins and urine immunofixation. 5. Underlying chronic kidney disease likely secondary to diabetic nephropathy, but in light of well-controlled diabetes and no known history of diabetic retinopathy need to rule out other causes. Case discussed with Dr. Massey, needs echocardiogram. Yolanda Bustos MD
--- NOTE | 2019-02-06 21:46 | PN ---
DATE: 02/06/2019 SUBJECTIVE: The patient feels markedly improved, not complaining of any shortness of breath. He denies cough this morning. There was no expectoration. PHYSICAL EXAMINATION: VITAL SIGNS: Remain stable. The patient is afebrile, heart rate 80, respiratory rate 16, blood pressure 140/80. HEENT: Normocephalic, atraumatic. NECK: Supple. No jugular venous distention, bruit or lymphadenopathy. HEART: Regular rhythm, S1, S2, without murmur, gallop or rub. CHEST: Good breath sounds throughout. No rales or rhonchi. Wheezes are not present. GASTROINTESTINAL: Abdomen is soft. Bowel sounds normoactive without mass, guarding, rebound or organomegaly. : Within normal limits EXTREMITIES: Reveal no clubbing, cyanosis or edema. NEUROLOGIC: Reveals no focal findings. SKIN: Dry; intact LABORATORY DATA: Followup chest x-ray has been done and shows no evidence of congestive heart failure or bronchopneumonia. ASSESSMENT: 1. Status post congestive heart failure. 2. Status post pneumonia. 3. Acute bronchitis. PLAN: The patient is markedly improved and doing better. We will discuss with primary medical doctor regarding further medical treatment. Thank you for the opportunity to participate in the care of this hill patient. Cipriano Francois MD SHUKRI
[2019-02-07] MEDS: guaiFENesin 200 mg/10 ml Syrup UD PO PRN (06:16)
[2019-02-07 06:40] LABS: HEMOGLOBIN 10.1 g/dL (14.0-18.0); MEAN CELL VOLUME 77.1 fl (80.0-105.0); MEAN CORPUSCULAR HEMOGLOBIN 24.3 pg (25.0-35.0); MEAN CORPUSCULAR HGB CONC 31.6 g/dl (31.0-37.0); MEAN PLATELET VOLUME 10.1 fl (7.0-11.0); RBC 4.15 10^6/uL (3.5-6.1); RED CELL DISTRIBUTION WIDTH 14.4 % (11.5-14.5); WHITE BLOOD COUNT 4.5 10^3/uL (4.5-11.0)
[2019-02-07 06:47] VITALS: O2SAT 98
[2019-02-07 07:22] LABS: ALB/GLOB RATIO 0.8 (1.1-1.8); ALBUMIN 2.8 g/dL (3.0-4.8); CALCIUM 8.5 mg/dL (8.4-10.5)
[2019-02-07] MEDS: Insulin Reg-MEDIUM-Coverage SC SCH ×2 (07:35→13:04)
[2019-02-07] MEDS ORDERED: Budesonide 0.5 mg/2 ml Inhal Susp UD IH SCH (08:00)
[2019-02-07] MEDS ORDERED: Arformoterol 15 mcg/2 ml Inh Sol IH SCH (08:00)
[2019-02-07] MEDS: cefTRIAXone 1 gm 1 GM/100 ML BAG IVPB SCH (09:38)
--- NOTE | 2019-02-07 09:44 | PN ---
DATE: 02/07/2019 SUBJECTIVE: The patient appears comfortable this morning. He is not short of breath at rest. PHYSICAL EXAMINATION: VITAL SIGNS: Temperature is 98, pulse 80, respirations 18/20, blood pressure 138/74. Oxygen saturation on room air - 98%. HEENT: Normocephalic, atraumatic. No JVD. CARDIOVASCULAR: Positive S1, S2. No S3 gallop. EXTREMITIES: No clubbing, cyanosis or edema. Chronic vascular changes. Calves are nontender to palpation. GASTROINTESTINAL: Abdomen is soft, nontender and nondistended. Bowel sounds are positive. SKIN: No acute rash. NEUROLOGIC: Exam limited at the present time. LUNGS--Decreased breath sounds at bases. Minimal rhonchi. No wheezing. IMPRESSION: 1. Acute congestive heart failure. 2. Mild bronchitis. 3. Renal insufficiency. 4. Anemia. PLAN: The patient appears comfortable this morning. He is not short of breath at rest. He does state to feeling much better overall. On physical exam, there is only minimal bronchospasm noted. In addition, there is no significant alveolar arterial gradient. I will start the patient on nebulizer treatments this morning. Inputs by Renal and Cardiology are also noted. Clinical status of the patient is certainly improved - compared to the initial presentation. I will discuss the above with Dr. Massey. John Arriaga MD MTDAnnia
[2019-02-07 12:35] VITALS: TEMP 98.1
--- NOTE | 2019-02-07 14:31 | PN ---
DATE: 02/07/2019 SUBJECTIVE: The patient's breathing is back to normal. He is chest pain free. PHYSICAL EXAMINATION: VITAL SIGNS: Blood pressure 153/83, heart rates in the 70s. NECK: Negative JVD. LUNGS: Without rales. HEART: S1, S2. EXTREMITIES: Without edema. LABORATORY DATA: BUN and creatinine 34 and 2.2. The glucose is 155. The hemoglobin is 10.1. IMPRESSION: 1. Resolution of congestive heart failure. 2. Dilated cardiomyopathy on echocardiogram with an ejection fraction of 35%. 3. Anemia. 4. Diabetes mellitus. 5. Resolution of dyspnea. 6. High probability for coronary artery disease. Given these findings, I have discussed his condition with the patient in detail. I have discussed the high probability for CAD. The patient is followed by his primary care doctor in [place] with a Dr. Agrawal. He apparently had a stress test done several months ago. He wants to followup and continued care with his primary care doctor and request to be discharged. There is no active CHF or angina at this time. The patient can be discharged. He agrees to follow up with his primary care doctor this week. Chucho Larsen MD
[2019-02-07 15:55] VITALS: BP 148/89; PULSE 82
--- NOTE | 2019-02-07 16:53 | CARD ---
APPROVED REPORT Date of service: 02/07/2019 EXAM: Two-dimensional and M-mode echocardiogram with Doppler and color Doppler. INDICATION Congestive Heart Failure 2D DIMENSIONS Left Atrium (2D)5.3 (1.6-4.0cm)IVSd1.8 (0.7-1.1cm) LVDd5.3 (3.9-5.9cm)PWd1.6 (0.7-1.1cm) LVDs4.3 (2.5-4.0cm)FS (%) 18.1 % LVEF (%)37.0 (>50%) M-Mode DIMENSIONS Aortic Root3.50 (2.2-3.7cm)Aortic Cusp Exc.2.20 (1.5-2.0cm) Aortic Valve AoV Peak Eeomsdds018.0cm/Susan Peak GR.8mmHg Mitral Valve MV E Wrmhsmms714.0cm/sMV A Zpozwjnj25.1cm/sE/A ratio1.9 TDI E/Lateral E'0.0E/Medial E'0.0 Tricuspid Valve TR Peak [id number] [id number] Peak Gr.35mmHg [id number] LEFT VENTRICLE The left ventricle is normal size. There is moderate concentric left ventricular hypertrophy. The systolic function is moderately to severely impaired. Regional wall motion abnormalities noted. The left ventricular diastolic function is normal. No left ventricle thrombus noted on this study. RIGHT VENTRICLE The right ventricle is normal size. There is normal right ventricular wall thickness. The right ventricular systolic function is normal. ATRIA The left atrium is moderately dilated. The right atrium is mildly dilated. AORTIC VALVE The aortic valve is mildly thickened. No aortic regurgitation is present. There is no aortic valvular stenosis. MITRAL VALVE The mitral valve is mildly thickened. Mitral regurgitation is moderate. There is no mitral valve stenosis. TRICUSPID VALVE There is mild tricuspid regurgitation. There is mild to moderate pulmonary hypertension. GREAT VESSELS The aortic root is normal in size. The IVC is normal in size and collapses >50% with inspiration. PERICARDIAL EFFUSION There is no pericardial effusion. <Conclusion> The left ventricle is normal size. There is moderate concentric left ventricular hypertrophy. The systolic function is moderately to severely impaired. Regional wall motion abnormalities noted. The left ventricular diastolic function is normal. Mitral regurgitation is moderate. There is mild tricuspid regurgitation. There is mild to moderate pulmonary hypertension.
--- NOTE | 2019-02-07 22:53 | DS ---
HISTORY OF PRESENT ILLNESS: I am hoping he could go today. He is having an acute kidney injury. He is having CHF, nephrotic range proteinuria, status post hypertensive emergency. He is off of Lasix now. We increased the hydralazine and that was yesterday's plan. I am still hoping to discharge him if his labs are okay. If not, we will have to keep him another day. He had congestive heart failure and uncontrolled hypertension. PHYSICAL EXAMINATION: GENERAL: He is alert and happy. He is walking and moving better, eating well. VITAL SIGNS: He has a 98 temp, 80 pulse, 138/74 blood pressure, 20 respiratory rate and 98% O2 sat on room air. HEENT: Head is atraumatic and normocephalic. HEART: Regular rate. LUNGS: Clear to auscultation. ABDOMEN: Soft. EXTREMITIES: No edema. LABORATORY DATA: He has a 4.5 white count, 10.1 hemoglobin, 32 hematocrit with 219 platelets. Sodium 140, potassium 3.9, BUN is 34 and creatinine 2.2 came down nicely. He had a 155 blood sugar, 8.5 calcium, total bili is 0.3, AST is 63, ALT is 25 and alk phos 120. PLAN: I would like to discharge him today if okay with Renal and Cardiology. He will go home on Apresoline 50 mg three times a day, Symbicort and Coreg. The Lasix was dropped to 20 mg and so we will change it to 20 mg p.o., Norvasc 10 mg. He will be on Symbicort, Vantin and the Z-Gilberto. Both of those antibiotics for 7 more days. He will follow up with his doctor on the outpatient. Hopefully he will do very well. I am glad his kidney function is starting to come back. ASSESSMENT: Juan Tran had a congestive heart failure and acute kidney injury. Gene Massey DO
--- NOTE | 2019-02-08 05:08 | PN ---
DATE: 02/07/2019 SUBJECTIVE: The patient is seen sitting in bed. He is awake, he is alert and he is comfortable. He denies any chest pain. He denies any shortness of breath. He reports he still has some cough. He is bringing up some clear white phlegm. PHYSICAL EXAMINATION: GENERAL: A middle-aged male, sitting in bed. VITAL SIGNS: Blood pressure 149/89, heart rate 80, respiratory rate 20, temperature 98.1. HEENT: Normocephalic, atraumatic, positive pallor. NECK: Supple, no JVD. LUNGS: Bilateral equal entry, bilateral equal expansion. CARDIAC: S1 and S2, regular rate and rhythm, no murmur, no rub. ABDOMEN: Obese, distended, soft, nontender, bowel sounds present. EXTREMITIES: No lower extremity edema. INTAKE AND OUTPUT: 2210/not charted. LABORATORY DATA: WBC 4.5, hemoglobin 10, hematocrit 32, platelets 209. Sodium 140, potassium 3.9, chloride 106, CO2 of 30, BUN 34, creatinine 2.2, glucose 155, calcium 8.5, albumin 2.8. Corrected calcium is 9.3. JOÃO negative. Serum immunoglobulins normal. Serum immunofixation pending. ESR 76. CURRENT MEDICATIONS: Hydralazine 50 mg every 8 hours, Coreg 3.125 mg b.i.d., insulin, Lasix 20 mg IV daily, amlodipine 10 mg, cefepime 1 g daily, Tylenol, Zithromax. ASSESSMENT: 1. Severe systolic dysfunction as per the echocardiogram. 2. Moderate pulmonary hypertension. 3. Status post decompensated congestive heart failure. 4. Severe hypertension. 5. [id number] diabetes mellitus. 6. Anemia. 7. Poor compliance. PLAN: 1. Okay to continue low-dose Lasix. 2. Acute kidney injury, renal parameters improving. 3. Nephrotic range proteinuria, suspect diabetic nephropathy, but need to rule out other causes. 4. No objection to discharge, the patient is counseled regarding importance of outpatient followup. Yolanda Bustos MD
--- NOTE | 2019-02-08 07:40 | PQF ---
PROVIDER RESPONSE TEXT: Acute on chronic diastolic chf REVIEWER QUERY TEXT: CHF Acuity and Type Congestive Heart Failure is documented in the Medical Record. Please document the type and acuity (in cludes probable or suspected) Such as: Type: -- Systolic -- Diastolic -- Combined -- Other, please specify Acuity: -- Acute -- Chronic -- Acute on chronic -- Other, please specify Also please document the underlying cause of the CHF (includes probable or suspected) The patient's Clinical Indicators include: Patient admitted with CHF. There is documentation of diastolic dysfunction in the record. Please specify if this is correct and the acuity of the CHF. Query created by: Juliane Dockery on 02/07/2019 7:43 AM Electronically signed by: Gene Massey DO 02/08/2019 7:37 AM
== END 2019-02-07 16:52 | disposition home or self-care (01) | DRG 291 ==
LOC: ED 10:02 → ERH 10:30 → 2RNO 12:14
PROVIDERS: ADMIT Family Medicine; ATTEND Family Medicine
DX: I13.0 Hypertensive heart and chronic kidney disease with heart failure and stage 1 through stage 4 chronic kidney disease, or unspecified chronic kidney disease (principal); I50.33 Acute on chronic diastolic (congestive) heart failure; N17.9 Acute kidney failure, unspecified; I16.1 Hypertensive emergency; J44.0 Chronic obstructive pulmonary disease with (acute) lower respiratory infection; J20.9 Acute bronchitis, unspecified; N20.0 Calculus of kidney; E11.21 Type 2 diabetes mellitus with diabetic nephropathy; E11.22 Type 2 diabetes mellitus with diabetic chronic kidney disease; N18.3 Chronic kidney disease, stage 3 (moderate); D63.1 Anemia in chronic kidney disease; D50.9 Iron deficiency anemia, unspecified; I42.0 Dilated cardiomyopathy; I27.20 Pulmonary hypertension, unspecified; Z91.19 Patient's noncompliance with other medical treatment and regimen; Z79.4 Long term (current) use of insulin